=== PATIENT | male | born 1945 | race Caucasian/White ===

== ENCOUNTER 2023-07-12 11:34 | Inpatient (IN) | payer OTHER, MEDICARE, MEDICAID ==
[~2023-07-12] VITALS: Ht 180.3 cm; Wt 76.3 kg
[2023-07-12] MEDS ORDERED: APIX5TAB3 PO (12:58)
[2023-07-12] MEDS: HYDROcodone/acetaminophen 5mg/325mg tablet PO ONE (13:01)
[2023-07-12] MEDS: ondansetron 4mg rapidly disintigrating tab PO ONE (13:02)
[2023-07-12 13:03] LABS: BASOPHILS # (AUTO) 0.1 X10'3 (0-0.2); BASOPHILS % (AUTO) 0.7 % (0-1); EOSINOPHILS # (AUTO) 0.1 X10'3 (0-0.9); EOSINOPHILS % (AUTO) 1.4 % (0-6); HEMATOCRIT 39.2 % (42.0-52.0); HEMOGLOBIN 12.8 g/dl (14.0-17.9); LYMPHOCYTES # (AUTO) 1.7 X10'3 (1.1-4.8); LYMPHOCYTES % (AUTO) 23.5 % (21-51); MEAN CORPUSCULAR HEMOGLOBIN 29.5 PG (27.0-31.0); MEAN CORPUSCULAR HGB CONC 32.8 g/dL (33.0-36.5); MEAN CORPUSCULAR VOLUME 90.2 FL (78-98); MEAN PLATELET VOLUME 8.4 FL (7.4-10.4); MONOCYTES % (AUTO) 13.8 % (2-12); NEUTROPHILS # (AUTO) 4.4 X10'3 (1.8-7.7); NEUTROPHILS % (AUTO) 60.6 % (42-75); PLATELET COUNT 252 X10'3 (140-440); RED BLOOD COUNT 4.34 X10'6 (4.70-6.10); RED CELL DISTRIBUTION WIDTH 14.2 % (11.5-14.5); WHITE BLOOD COUNT 7.3 X10'3 (4.5-11.0)
[2023-07-12 13:14] LABS: APTT 28 SECONDS (22-32); PROTHROMBIN TIME 10.9 SECONDS (9.0-12.0)
[2023-07-12 13:24] LABS: ALANINE AMINOTRANSFERASE 19 U/L (12-78); ALBUMIN 3.1 G/DL (3.4-5.0); ALBUMIN/GLOBULIN RATIO 0.7 (1.1-1.5); ALKALINE PHOSPHATASE 119 IU/L (46-116); ANION GAP 5 (8-16); ASPARTATE AMINO TRANSFERASE 12 U/L (10-37); BILIRUBIN,TOTAL 0.3 MG/DL (0.1-1.0); BLOOD UREA NITROGEN 14 MG/DL (7-18); BUN/CREATININE RATIO 11.1 (10.0-20.0); CALCIUM 8.6 MG/DL (8.5-10.1); CHLORIDE 102 MMOL/L (99-107); CREATININE 1.26 MG/DL (0.60-1.10); GLUCOSE 90 MG/DL (70-104); POTASSIUM 4.3 MMOL/L (3.5-5.1); SODIUM 136 MMOL/L (135-145); TOTAL CARBON DIOXIDE 29.2 MMOL/L (24-32); TOTAL PROTEIN 7.8 G/DL (6.4-8.2); eCRCL 52 ML/MIN; eGFR 55 ML/MIN
[2023-07-12 13:35] LABS: MAGNESIUM 2.4 MG/DL (1.5-2.4); PRO BRAIN NATRIURETIC PEPTIDE 284 PG/ML (0-450)
[2023-07-12 14:57] LABS: BILIRUBIN,URINE NEGATIVE (Neg); CLARITY,URINE CLOUDY (Clear); COLOR,URINE YELLOW (Yellow); GLUCOSE, URINE NEGATIVE (Neg); KETONES,URINE NEGATIVE (Neg); LEUKOCYTE ESTERASE ,URINE NEGATIVE (Neg); NITRITES, URINE NEGATIVE (Neg); OCCULT BLOOD,URINE NEGATIVE (Neg); PROTEIN,URINE NEGATIVE (Neg); UROBILINOGEN,URINE 0.2 E.U/dL (0.2-1.0)
[2023-07-12 15:10] LABS: UA COLLECTION TYPE CLN CATCH MIDSTREAM
[2023-07-12 15:13] LABS: BACTERIA,URINE 4+ /HPF (Neg); RBC,URINE NONE SEEN /HPF (0-2); SQUAMOUS EPITHELIAL CELL,UR NONE SEEN /LPF (FEW); WBC,URINE 30-50 /HPF (0-4)
[2023-07-12 15:19] LABS: URINE AMPHETAMINE SCREEN NEGATIVE (Neg); URINE BARBITUATE SCREEN NEGATIVE (Neg); URINE BENZODIAZEPINES SCREEN NEGATIVE (Neg); URINE CANNABINOID SCREEN NEGATIVE (Neg); URINE COCAINE SCREEN NEGATIVE (Neg); URINE METHADONE SCREEN NEGATIVE (Neg); URINE OPIATE SCREEN NEGATIVE (Neg); URINE PHENCYCLIDINE SCREEN NEGATIVE (Neg)
[2023-07-12] MEDS ORDERED: acetaminophen 325mg tablet PO PRN (15:20)
[2023-07-12] MEDS ORDERED: magnesium hydroxide 30ml (MOM) UD suspension PO PRN (15:20)
[2023-07-12] MEDS ORDERED: mag hydrox/Alum hydrox/simeth 30ml oral suspension PO PRN (15:20)
[2023-07-12] MEDS ORDERED: potassium Cl 40MEQ/1/2NS 520ml 520 ML IV PRN (15:20)
[2023-07-12] MEDS ORDERED: ondansetron/PF 4mg/2ml inj IV PRN (15:20)
[2023-07-12] MEDS ORDERED: magnesium Cl slow-release 64mg tablet PO PRN (15:20)
[2023-07-12] MEDS ORDERED: morphine 2 MG/ML inj. syringe IV PRN ×2 (15:20)
[2023-07-12] MEDS ORDERED: magnesium 4gm in 100ml NS 100 ML IV PRN (15:20)
[2023-07-12] MEDS ORDERED: HYDROcodone/acetaminophen 10/325mg tab PO PRN (15:20)
[2023-07-12] MEDS ORDERED: magnesium 2GM in 50ml NS 50 ML IV PRN (15:20)
[2023-07-12] MEDS ORDERED: HYDROcodone/acetaminophen 5mg/325mg tablet PO PRN (15:20)
[2023-07-12] MEDS ORDERED: potassium Cl 20 mEq SR tablet PO PRN ×2 (15:20)
[2023-07-12] MEDS: pantoprazole 40 MG vial IV SCH (15:32)
[2023-07-12] MEDS: normal saline 1000ml 1,000 ML IV SCH (15:33)
[2023-07-12] MEDS: CefTRIAXone/D5W-Rocephin 1gm 50 ML IV SCH (16:14)
[2023-07-12] MEDS: K and/or MAG REPLACEMENT MC SCH (20:00)
[2023-07-12] MEDS: enoxaparin 40mg/0.4ml syringe SQ SCH (20:00)
[2023-07-12] MEDS: apixaban 5mg tablet PO SCH (20:23)
[2023-07-12] MEDS: docusate sod 100mg capsule PO SCH (20:24)
[2023-07-13 00:30] VITALS: BP 118/72; PULSE 58; RESP 18; TEMP 98; O2SAT 95
[2023-07-13 02:00] VITALS: BP 114/69; PULSE 54; RESP 18; TEMP 97.9; O2SAT 95
[2023-07-13 06:00] VITALS: BP 154/80; PULSE 53; RESP 16; TEMP 97.5; O2SAT 95
[2023-07-13 06:47] VITALS: PULSE 52
[2023-07-13 07:20] LABS: BASOPHILS % (AUTO) 0.8 % (0-1); EOSINOPHILS # (AUTO) 0.1 X10'3 (0-0.9); EOSINOPHILS % (AUTO) 2.2 % (0-6); HEMATOCRIT 36.9 % (42.0-52.0); HEMOGLOBIN 12.3 g/dl (14.0-17.9); LYMPHOCYTES # (AUTO) 1.4 X10'3 (1.1-4.8); LYMPHOCYTES % (AUTO) 23.1 % (21-51); MEAN CORPUSCULAR HEMOGLOBIN 29.8 PG (27.0-31.0); MEAN CORPUSCULAR HGB CONC 33.3 g/dL (33.0-36.5); MEAN CORPUSCULAR VOLUME 89.4 FL (78-98); MEAN PLATELET VOLUME 8.6 FL (7.4-10.4); MONOCYTES # (AUTO) 0.7 X10'3 (0-0.9); MONOCYTES % (AUTO) 12.5 % (2-12); NEUTROPHILS # (AUTO) 3.6 X10'3 (1.8-7.7); NEUTROPHILS % (AUTO) 61.4 % (42-75); PLATELET COUNT 229 X10'3 (140-440); RED BLOOD COUNT 4.13 X10'6 (4.70-6.10); RED CELL DISTRIBUTION WIDTH 14.5 % (11.5-14.5); WHITE BLOOD COUNT 5.9 X10'3 (4.5-11.0)
[2023-07-13 07:30] LABS: APTT 29 SECONDS (22-32)
[2023-07-13 07:32] LABS: ALANINE AMINOTRANSFERASE 15 U/L (12-78); ALBUMIN/GLOBULIN RATIO 0.7 (1.1-1.5); ALKALINE PHOSPHATASE 106 IU/L (46-116); ANION GAP 7 (8-16); ASPARTATE AMINO TRANSFERASE 13 U/L (10-37); BILIRUBIN,TOTAL 0.4 MG/DL (0.1-1.0); BLOOD UREA NITROGEN 15 MG/DL (7-18); BUN/CREATININE RATIO 11.5 (10.0-20.0); CALCIUM 8.8 MG/DL (8.5-10.1); CHLORIDE 101 MMOL/L (99-107); GLUCOSE 92 MG/DL (70-104); POTASSIUM 4.3 MMOL/L (3.5-5.1); SODIUM 136 MMOL/L (135-145); TOTAL CARBON DIOXIDE 28.3 MMOL/L (24-32); TOTAL PROTEIN 7.3 G/DL (6.4-8.2); eCRCL 51 ML/MIN; eGFR 54 ML/MIN
[2023-07-13 07:43] LABS: CHOL/HDL RATIO 5.2 (0.00-4.99); CHOLESTEROL 182 MG/DL (0-200); FREE T4 (FREE THYROXINE) 1.67 NG/DL (0.73-1.40); HDL CHOLESTEROL 35 MG/DL (35-60); LDL CHOLESTEROL 115 MG/DL (50-100); MAGNESIUM 2.3 MG/DL (1.5-2.4); PHOSPHORUS 3.5 MG/DL (2.3-4.5); TRIGLYCERIDES 94 MG/DL (20-135)
[2023-07-13] MEDS: metoprolol succinate 25mg (24-HOUR) SR. Tablet PO SCH (08:00)
[2023-07-13] MEDS: aspirin 81mg, enteric-coated 1 TAB TABLET.DR PO SCH (08:00)
[2023-07-13] MEDS ORDERED: pneumococcal 23-VAL P-sac vacc 25 mcg/0.5ml vial IMVAC ONE (10:00)
[2023-07-13] MEDS ORDERED: FLU VACC QS2023-24(6MOS UP)/PF 60 MCG/0.5 ML SYRINGE IM ONE (10:00)
[2023-07-13 10:49] LABS: HEMOGLOBIN A1C 5.9 % (4.5-6.2)
[2023-07-13 11:00] VITALS: BP 159/89; PULSE 64; RESP 18; TEMP 98.1; O2SAT 98
[2023-07-13] MEDS ORDERED: PANT-47 PO (12:42)
[2023-07-13] MEDS ORDERED: METO-395 PO (12:42)
[2023-07-13] MEDS ORDERED: LEVO-65 PO (12:44)
[2023-07-13] MEDS ORDERED: FURO-150 PO (20:31)
[2023-07-14] MEDS ORDERED: metoprolol succinate 25mg (24-HOUR) SR. Tablet PO SCH (08:00)
== END 2023-07-13 12:57 | disposition home or self-care (01) | DRG 391 ==
LOC: ER 11:35 → EDBD 11:35 → ED HOLD 15:22 → PCU 3S 07-13 00:50
PROVIDERS: ADMIT Internal Medicine; ATTEND Internal Medicine
DX: K29.70 Gastritis, unspecified, without bleeding (principal); N17.0 Acute kidney failure with tubular necrosis; N39.0 Urinary tract infection, site not specified; I50.30 Unspecified diastolic (congestive) heart failure; E86.0 Dehydration; I25.10 Atherosclerotic heart disease of native coronary artery without angina pectoris; I48.91 Unspecified atrial fibrillation; I11.0 Hypertensive heart disease with heart failure; E05.80 Other thyrotoxicosis without thyrotoxic crisis or storm; F03.90 Unspecified dementia, unspecified severity, without behavioral disturbance, psychotic disturbance, mood disturbance, and anxiety; E78.5 Hyperlipidemia, unspecified; Z79.01 Long term (current) use of anticoagulants; Z79.899 Other long term (current) drug therapy
CPT/HCPCS: 36415; 71045; 80053; 80061; 80305; 81001; 83036; 83735; 83880; 84100; 84132; 84439; 84443; 84484; 85025; 85610; 85730; 87077; 87081; 87088; 87186; 93005; 93306; 99285; C9113; G0378; J0696; J7030

== ENCOUNTER 2023-10-15 16:27 | Inpatient (IN) | payer OTHER, MEDICARE, MEDICAID ==
[~2023-10-15] VITALS: Ht 177.8 cm; Wt 81.8 kg
[2023-10-15] VITALS (12 sets, daily range): BP systolic 139–217; BP diastolic 77–124; PULSE 67–87; RESP 6–22; O2SAT 93–100
[~2023-10-15 16:27] MED LIST: APIX5TAB3 PO; FURO-150 PO; LISI5TAB22 PO; METO-395 PO; PANT-47 PO
[2023-10-15 18:27] LABS: BASOPHILS % (AUTO) 0.3 % (0-1); EOSINOPHILS % (AUTO) 0.2 % (0-6); HEMATOCRIT 45.5 % (42.0-52.0); HEMOGLOBIN 15.6 g/dl (14.0-17.9); LYMPHOCYTES % (AUTO) 7.8 % (21-51); MEAN CORPUSCULAR HEMOGLOBIN 30.8 PG (27.0-31.0); MEAN CORPUSCULAR HGB CONC 34.4 g/dL (33.0-36.5); MEAN CORPUSCULAR VOLUME 89.5 FL (78-98); MONOCYTES # (AUTO) 0.8 X10'3 (0-0.9); MONOCYTES % (AUTO) 5.9 % (2-12); NEUTROPHILS % (AUTO) 85.8 % (42-75); PLATELET COUNT 178 X10'3 (140-440); RED BLOOD COUNT 5.08 X10'6 (4.70-6.10); RED CELL DISTRIBUTION WIDTH 14.8 % (11.5-14.5); WHITE BLOOD COUNT 12.8 X10'3 (4.5-11.0)
[2023-10-15 18:32] LABS: APTT 22 SECONDS (22-32); PROTHROMBIN TIME 10.9 SECONDS (9.0-12.0)
[2023-10-15 18:38] LABS: ALANINE AMINOTRANSFERASE 19 U/L (12-78); ALBUMIN 4.3 G/DL (3.4-5.0); ALBUMIN/GLOBULIN RATIO 0.9 (1.1-1.5); ALKALINE PHOSPHATASE 103 IU/L (46-116); ANION GAP 12 (8-16); ASPARTATE AMINO TRANSFERASE 17 U/L (10-37); BILIRUBIN,TOTAL 0.7 MG/DL (0.1-1.0); BLOOD UREA NITROGEN 22 MG/DL (7-18); BUN/CREATININE RATIO 12.6 (10.0-20.0); CHLORIDE 96 MMOL/L (99-107); CREATININE 1.74 MG/DL (0.60-1.10); GLUCOSE 124 MG/DL (70-104); LIPASE 16 U/L (16-77); SODIUM 135 MMOL/L (135-145); TOTAL CARBON DIOXIDE 27.1 MMOL/L (24-32); TOTAL PROTEIN 8.9 G/DL (6.4-8.2); eCRCL 37 ML/MIN; eGFR 38 ML/MIN
[2023-10-15] MEDS ORDERED: ondansetron/PF 4mg/2ml inj IV PRN (19:00)
[2023-10-15] MEDS ORDERED: labetalol 20mg/4ml (5mg/ml) syringe IV PRN (19:00)
[2023-10-15] MEDS ORDERED: morphine 2 MG/ML inj. syringe IV PRN (19:00)
[2023-10-15] MEDS ORDERED: meperidine/PF 25mg/ml syringe IV PRN ×2 (19:00)
[2023-10-15] MEDS ORDERED: proCHLORperazine 10 MG/2 ml inj IV PRN (19:00)
[2023-10-15] MEDS ORDERED: morphine 4 MG/ML inj SYRINge IV PRN (19:00)
[2023-10-15] MEDS: ringers solution, lacted 1,000 ML IV SCH (19:00)
[2023-10-15] MEDS ORDERED: BUPIVACAINE liposomal/PF 13.3 MG/ML vial IM ONE (19:27)
[2023-10-15] MEDS ORDERED: BUPIVAcaine/PF 2.5mg/ml (0.25%) 10ml vial ONE (19:27)
[2023-10-15] MEDS ORDERED: fentaNYL /PF 50mcg/ml 5ml ampule ONE (19:43)
[2023-10-15] MEDS ORDERED: midazolam 1 mg/ML 2ml injection ONE (19:43)
[2023-10-15] MEDS ORDERED: sevoflurane 250ml liquid IH ONE (19:47)
[2023-10-15] MEDS ORDERED: propofol inj 20 ML IV ONE (20:49)
[2023-10-15] MEDS ORDERED: rocuronium 10mg/ml inj IV ONE (20:49)
[2023-10-15] MEDS ORDERED: ondansetron/PF 4mg/2ml inj ONE (20:49)
[2023-10-15] MEDS ORDERED: ceFOXitin 1000 MG inj ONE ×2 (20:49)
[2023-10-15] MEDS ORDERED: LIDOcaine 2% (20mg/ml) 5ml vial ONE (20:49)
[2023-10-15] MEDS ORDERED: labetalol 20mg/4ml (5mg/ml) syringe IV ONE (21:22)
[2023-10-15] MEDS ORDERED: neostigmine methylsulfate 1 MG/ML 10ml vial ONE (21:22)
[2023-10-15] MEDS: meperidine/PF 25mg/ml syringe IV PRN (21:53)
[2023-10-15] MEDS: enalaprilat dihydrate 2.5mg/2ml vial IV PRN (21:56)
[2023-10-16] VITALS (11 sets, daily range): BP systolic 113–131; BP diastolic 59–65; PULSE 62–72; RESP 14–18; TEMP 97.5–99.6; O2SAT 93–99
[2023-10-16] MEDS ORDERED: ondansetron/PF 4mg/2ml inj IV PRN ×2 (02:20→03:20)
[2023-10-16] MEDS: HYDROmorphone 1 mg/ml syringe IV PRN (02:46)
[2023-10-16] MEDS ORDERED: acetaminophen 325mg tablet PO PRN (03:20)
[2023-10-16] MEDS ORDERED: magnesium 2GM in 50ml NS 50 ML IV PRN (03:20)
[2023-10-16] MEDS ORDERED: mag hydrox/Alum hydrox/simeth 30ml oral suspension PO PRN (03:20)
[2023-10-16] MEDS ORDERED: magnesium hydroxide 30ml (MOM) UD suspension PO PRN (03:20)
[2023-10-16] MEDS ORDERED: potassium Cl 40MEQ/1/2NS 520ml 520 ML IV PRN (03:20)
[2023-10-16] MEDS ORDERED: magnesium 4gm in 100ml NS 100 ML IV PRN (03:20)
[2023-10-16] MEDS ORDERED: magnesium Cl slow-release 64mg tablet PO PRN (03:20)
[2023-10-16] MEDS ORDERED: potassium Cl 20 mEq SR tablet PO PRN ×2 (03:20)
[2023-10-16] MEDS: normal saline 1000ml 1,000 ML IV SCH (04:32)
[2023-10-16] MEDS: K and/or MAG REPLACEMENT MC SCH (08:00)
[2023-10-16] MEDS: pantoprazole 40mg Tablet.DR PO SCH (08:52)
[2023-10-16] MEDS: furosemide 20MG tablet PO SCH (08:52)
[2023-10-16] MEDS: docusate sod 100mg capsule PO SCH (08:52)
[2023-10-16] MEDS: apixaban 5mg tablet PO SCH (08:52)
[2023-10-16] MEDS: lisinopril 5mg tablet PO SCH (08:53)
[2023-10-16] MEDS: metoprolol succinate 25mg (24-HOUR) SR. Tablet PO SCH (08:53)
[2023-10-16] MEDS: nitroGLYCERIN 0.4mg SUBLingual tab SL ONE (23:19)
[2023-10-16] MEDS: nitroGLYCERIN 0.4mg SUBLingual tab SL PRN (23:24)
[2023-10-17] VITALS (10 sets, daily range): BP systolic 80–161; BP diastolic 52–77; PULSE 59–85; RESP 14–18; TEMP 97.5–98.4; O2SAT 92–95
[2023-10-17 00:03] LABS: PRO BRAIN NATRIURETIC PEPTIDE 784 PG/ML (0-450)
[2023-10-17 07:34] LABS: BASOPHILS % (AUTO) 0.3 % (0-1); EOSINOPHILS % (AUTO) 0 % (0-6); HEMATOCRIT 34.8 % (42.0-52.0); HEMOGLOBIN 11.6 g/dl (14.0-17.9); LYMPHOCYTES # (AUTO) 1.3 X10'3 (1.1-4.8); LYMPHOCYTES % (AUTO) 11.6 % (21-51); MEAN CORPUSCULAR HEMOGLOBIN 30.5 PG (27.0-31.0); MEAN CORPUSCULAR HGB CONC 33.2 g/dL (33.0-36.5); MEAN CORPUSCULAR VOLUME 91.7 FL (78-98); MEAN PLATELET VOLUME 8.8 FL (7.4-10.4); MONOCYTES # (AUTO) 1.3 X10'3 (0-0.9); MONOCYTES % (AUTO) 11.3 % (2-12); NEUTROPHILS # (AUTO) 8.7 X10'3 (1.8-7.7); NEUTROPHILS % (AUTO) 76.8 % (42-75); PLATELET COUNT 139 X10'3 (140-440); RED BLOOD COUNT 3.79 X10'6 (4.70-6.10); WHITE BLOOD COUNT 11.3 X10'3 (4.5-11.0)
[2023-10-17 08:15] LABS: ALANINE AMINOTRANSFERASE 12 U/L (12-78); ALBUMIN 2.8 G/DL (3.4-5.0); ALBUMIN/GLOBULIN RATIO 0.8 (1.1-1.5); ALKALINE PHOSPHATASE 49 IU/L (46-116); ANION GAP 6 (8-16); ASPARTATE AMINO TRANSFERASE 23 U/L (10-37); BILIRUBIN,TOTAL 0.6 MG/DL (0.1-1.0); BLOOD UREA NITROGEN 19 MG/DL (7-18); CALCIUM 8.1 MG/DL (8.5-10.1); CHLORIDE 105 MMOL/L (99-107); CREATININE 1.19 MG/DL (0.60-1.10); GLUCOSE 102 MG/DL (70-104); MAGNESIUM 2.1 MG/DL (1.5-2.4); PHOSPHORUS 2.6 MG/DL (2.3-4.5); POTASSIUM 4.3 MMOL/L (3.5-5.1); SODIUM 138 MMOL/L (135-145); TOTAL CARBON DIOXIDE 27.3 MMOL/L (24-32); TOTAL PROTEIN 6.1 G/DL (6.4-8.2); eCRCL 54 ML/MIN; eGFR 59 ML/MIN
[2023-10-17] MEDS ORDERED: regadenoson 0.4mg/5ml syringe IV PRN (12:45)
[2023-10-17] MEDS ORDERED: metoprolol tartrate 1mg/ml inj IV PRN (12:45)
[2023-10-17] MEDS ORDERED: aminophylline 250mg/10ml inj. IV PRN (12:45)
[2023-10-18 02:58] VITALS: BP 143/90; PULSE 95; RESP 16; TEMP 98.3; O2SAT 95
[2023-10-18] MEDS: nitroGLYCERIN 0.4mg SUBLingual tab SL PRN (03:01)
[2023-10-18 03:04] VITALS: BP 117/76; PULSE 91; RESP 14; O2SAT 91
[2023-10-18 03:55] VITALS: BP 93/62; PULSE 88; RESP 12; O2SAT 94
[2023-10-18 06:00] VITALS: BP 145/89; RESP 18; TEMP 98.3; O2SAT 96
[2023-10-18 08:00] LABS: BASOPHILS % (AUTO) 0.4 % (0-1); EOSINOPHILS # (AUTO) 0.1 X10'3 (0-0.9); EOSINOPHILS % (AUTO) 1.4 % (0-6); HEMATOCRIT 35.3 % (42.0-52.0); LYMPHOCYTES # (AUTO) 1.7 X10'3 (1.1-4.8); LYMPHOCYTES % (AUTO) 17.2 % (21-51); MEAN CORPUSCULAR HEMOGLOBIN 31.2 PG (27.0-31.0); MEAN CORPUSCULAR HGB CONC 34.1 g/dL (33.0-36.5); MEAN CORPUSCULAR VOLUME 91.5 FL (78-98); MEAN PLATELET VOLUME 8.9 FL (7.4-10.4); MONOCYTES # (AUTO) 1.3 X10'3 (0-0.9); MONOCYTES % (AUTO) 12.7 % (2-12); NEUTROPHILS # (AUTO) 6.8 X10'3 (1.8-7.7); NEUTROPHILS % (AUTO) 68.3 % (42-75); PLATELET COUNT 155 X10'3 (140-440); RED BLOOD COUNT 3.85 X10'6 (4.70-6.10); WHITE BLOOD COUNT 9.9 X10'3 (4.5-11.0)
[2023-10-18 08:12] LABS: ALANINE AMINOTRANSFERASE 14 U/L (12-78); ALBUMIN 2.9 G/DL (3.4-5.0); ALBUMIN/GLOBULIN RATIO 0.8 (1.1-1.5); ALKALINE PHOSPHATASE 60 IU/L (46-116); ANION GAP 1 (8-16); ASPARTATE AMINO TRANSFERASE 28 U/L (10-37); BILIRUBIN,TOTAL 0.7 MG/DL (0.1-1.0); BLOOD UREA NITROGEN 18 MG/DL (7-18); BUN/CREATININE RATIO 14.1 (10.0-20.0); CALCIUM 8.4 MG/DL (8.5-10.1); CHLORIDE 104 MMOL/L (99-107); CREATININE 1.28 MG/DL (0.60-1.10); GLUCOSE 97 MG/DL (70-104); PHOSPHORUS 2.3 MG/DL (2.3-4.5); POTASSIUM 3.9 MMOL/L (3.5-5.1); SODIUM 135 MMOL/L (135-145); TOTAL CARBON DIOXIDE 29.6 MMOL/L (24-32); TOTAL PROTEIN 6.7 G/DL (6.4-8.2); eCRCL 50 ML/MIN; eGFR 54 ML/MIN
[2023-10-18 18:40] VITALS: BP 145/89; PULSE 72; RESP 18; TEMP 98.3; O2SAT 96
[2023-10-18 22:00] VITALS: BP 138/71; PULSE 56; RESP 16; TEMP 97.7; O2SAT 93
[2023-10-19 06:00] VITALS: BP 161/81; PULSE 54; RESP 16; TEMP 98.7; O2SAT 95
[2023-10-19] MEDS: atorvastatin 20mg tablet PO SCH (07:47)
[2023-10-19 07:49] VITALS: RESP 16
[2023-10-19] MEDS: isosorbide mononitrate 30mg tab.SR.24H PO SCH (07:58)
[2023-10-19 08:02] VITALS: BP 180/81; PULSE 55
[2023-10-19 08:32] LABS: BASOPHILS # (AUTO) 0.1 X10'3 (0-0.2); BASOPHILS % (AUTO) 0.7 % (0-1); EOSINOPHILS # (AUTO) 0.3 X10'3 (0-0.9); EOSINOPHILS % (AUTO) 4.2 % (0-6); HEMATOCRIT 35.6 % (42.0-52.0); HEMOGLOBIN 12.2 g/dl (14.0-17.9); LYMPHOCYTES # (AUTO) 1.4 X10'3 (1.1-4.8); LYMPHOCYTES % (AUTO) 17.7 % (21-51); MEAN CORPUSCULAR HEMOGLOBIN 31.1 PG (27.0-31.0); MEAN CORPUSCULAR HGB CONC 34.2 g/dL (33.0-36.5); MEAN CORPUSCULAR VOLUME 90.9 FL (78-98); MEAN PLATELET VOLUME 8.8 FL (7.4-10.4); MONOCYTES # (AUTO) 0.8 X10'3 (0-0.9); MONOCYTES % (AUTO) 10.4 % (2-12); NEUTROPHILS # (AUTO) 5.3 X10'3 (1.8-7.7); PLATELET COUNT 160 X10'3 (140-440); RED BLOOD COUNT 3.91 X10'6 (4.70-6.10); RED CELL DISTRIBUTION WIDTH 14.8 % (11.5-14.5); WHITE BLOOD COUNT 7.9 X10'3 (4.5-11.0)
[2023-10-19 09:07] LABS: ALANINE AMINOTRANSFERASE 13 U/L (12-78); ALBUMIN 2.8 G/DL (3.4-5.0); ALBUMIN/GLOBULIN RATIO 0.7 (1.1-1.5); ALKALINE PHOSPHATASE 61 IU/L (46-116); ANION GAP 5 (8-16); ASPARTATE AMINO TRANSFERASE 21 U/L (10-37); BILIRUBIN,TOTAL 0.7 MG/DL (0.1-1.0); BLOOD UREA NITROGEN 19 MG/DL (7-18); BUN/CREATININE RATIO 17.3 (10.0-20.0); CALCIUM 8.7 MG/DL (8.5-10.1); CHLORIDE 103 MMOL/L (99-107); GLUCOSE 93 MG/DL (70-104); PHOSPHORUS 3.2 MG/DL (2.3-4.5); POTASSIUM 3.7 MMOL/L (3.5-5.1); SODIUM 135 MMOL/L (135-145); TOTAL CARBON DIOXIDE 26.7 MMOL/L (24-32); TOTAL PROTEIN 6.6 G/DL (6.4-8.2); eCRCL 58 ML/MIN; eGFR 65 ML/MIN
[2023-10-19 10:00] VITALS: BP 93/55; PULSE 70; RESP 18; TEMP 97.7; O2SAT 97
[2023-10-19] MEDS: HYDROcodone/acetaminophen 5mg/325mg tablet PO PRN (14:16)
[2023-10-19 18:00] VITALS: BP 119/70; PULSE 68; RESP 14; TEMP 97.6; O2SAT 93
[2023-10-19 22:00] VITALS: BP 122/72; PULSE 63; RESP 17; TEMP 98.1; O2SAT 92
[2023-10-20 06:00] VITALS: BP 124/68; PULSE 59; RESP 16; TEMP 98.3; O2SAT 97
[2023-10-20 08:00] VITALS: RESP 16; O2SAT 97
[2023-10-20 08:09] LABS: BASOPHILS % (AUTO) 0.7 % (0-1); EOSINOPHILS # (AUTO) 0.3 X10'3 (0-0.9); EOSINOPHILS % (AUTO) 4.1 % (0-6); HEMATOCRIT 36.1 % (42.0-52.0); HEMOGLOBIN 12.2 g/dl (14.0-17.9); LYMPHOCYTES # (AUTO) 1.9 X10'3 (1.1-4.8); LYMPHOCYTES % (AUTO) 26.2 % (21-51); MEAN CORPUSCULAR HEMOGLOBIN 30.7 PG (27.0-31.0); MEAN CORPUSCULAR HGB CONC 33.7 g/dL (33.0-36.5); MEAN PLATELET VOLUME 8.9 FL (7.4-10.4); MONOCYTES # (AUTO) 0.9 X10'3 (0-0.9); MONOCYTES % (AUTO) 12.1 % (2-12); NEUTROPHILS # (AUTO) 4.1 X10'3 (1.8-7.7); NEUTROPHILS % (AUTO) 56.9 % (42-75); PLATELET COUNT 187 X10'3 (140-440); RED BLOOD COUNT 3.97 X10'6 (4.70-6.10); RED CELL DISTRIBUTION WIDTH 14.5 % (11.5-14.5); WHITE BLOOD COUNT 7.2 X10'3 (4.5-11.0)
[2023-10-20 08:46] LABS: ALANINE AMINOTRANSFERASE 14 U/L (12-78); ALBUMIN 2.8 G/DL (3.4-5.0); ALBUMIN/GLOBULIN RATIO 0.7 (1.1-1.5); ALKALINE PHOSPHATASE 70 IU/L (46-116); ANION GAP 4 (8-16); ASPARTATE AMINO TRANSFERASE 15 U/L (10-37); BILIRUBIN,TOTAL 0.4 MG/DL (0.1-1.0); BLOOD UREA NITROGEN 19 MG/DL (7-18); BUN/CREATININE RATIO 15.1 (10.0-20.0); CALCIUM 8.9 MG/DL (8.5-10.1); CHLORIDE 102 MMOL/L (99-107); CREATININE 1.26 MG/DL (0.60-1.10); GLUCOSE 97 MG/DL (70-104); PHOSPHORUS 4.3 MG/DL (2.3-4.5); POTASSIUM 3.9 MMOL/L (3.5-5.1); SODIUM 136 MMOL/L (135-145); TOTAL CARBON DIOXIDE 30.1 MMOL/L (24-32); TOTAL PROTEIN 6.7 G/DL (6.4-8.2); eCRCL 51 ML/MIN; eGFR 55 ML/MIN
[2023-10-20 10:00] VITALS: BP 141/78; PULSE 64; RESP 18; TEMP 98.1; O2SAT 96
== END 2023-10-20 14:40 | DRG 335 ==
LOC: ER 16:27 → ORTHO 4S 22:20
PROVIDERS: ADMIT Surgery; ATTEND Internal Medicine
PROC: 0D9800Z Drainage of Small Intestine with Drainage Device, Open Approach (ICD-10-PCS; 2023-10-15)
PROC: 3E0T3BZ Introduction of Anesthetic Agent into Peripheral Nerves and Plexi, Percutaneous Approach (ICD-10-PCS; 2023-10-15)
PROC: 0DN80ZZ Release Small Intestine, Open Approach (ICD-10-PCS; principal; 2023-10-15 19:47)
PROC: 4A02XM4 Measurement of Cardiac Total Activity, External Approach (ICD-10-PCS; 2023-10-18)
PROC: 3E033HZ Introduction of Radioactive Substance into Peripheral Vein, Percutaneous Approach (ICD-10-PCS; 2023-10-18)
DX: K56.50 Intestinal adhesions [bands], unspecified as to partial versus complete obstruction (principal); I21.4 Non-ST elevation (NSTEMI) myocardial infarction; N17.9 Acute kidney failure, unspecified; I25.110 Atherosclerotic heart disease of native coronary artery with unstable angina pectoris; I48.91 Unspecified atrial fibrillation; E86.0 Dehydration; F03.90 Unspecified dementia, unspecified severity, without behavioral disturbance, psychotic disturbance, mood disturbance, and anxiety; Z66 Do not resuscitate; I10 Essential (primary) hypertension; Z79.01 Long term (current) use of anticoagulants; Z79.899 Other long term (current) drug therapy; Z86.718 Personal history of other venous thrombosis and embolism
CPT/HCPCS: 36415; 71045; 78451; 80053; 83690; 83735; 83880; 84100; 84132; 84484; 85025; 85610; 85730; 86885; 86900; 86901; 87081; 93005; 93306; 97116; 97161; 97530; 99285; A4618; A7000; A9500; C1758; C9290; G0378; J0694; J1100; J1170; J2175; J2250; J2405; J2704; J2710; J3010; J3490; J7030; J7120

== ENCOUNTER 2024-03-20 00:29 | Inpatient (IN) | payer OTHER, MEDICAID ==
[~2024-03-20] VITALS: Ht 175.3 cm; Wt 81.8 kg
[2024-03-20] VITALS (8 sets, daily range): BP systolic 118–170; BP diastolic 58–86; PULSE 50–68; RESP 14–18; TEMP 97.3–98.8; O2SAT 95–98
[2024-03-20 01:34] LABS: BASOPHILS # (AUTO) 0.1 X10'3 (0-0.2); BASOPHILS % (AUTO) 0.6 % (0-1); EOSINOPHILS # (AUTO) 0.1 X10'3 (0-0.9); EOSINOPHILS % (AUTO) 1.1 % (0-6); HEMATOCRIT 39.3 % (42.0-52.0); LYMPHOCYTES # (AUTO) 1.4 X10'3 (1.1-4.8); LYMPHOCYTES % (AUTO) 15.7 % (21-51); MEAN CORPUSCULAR HEMOGLOBIN 30.3 PG (27.0-31.0); MEAN CORPUSCULAR VOLUME 91.7 FL (78-98); MEAN PLATELET VOLUME 8.8 FL (7.4-10.4); MONOCYTES # (AUTO) 0.7 X10'3 (0-0.9); MONOCYTES % (AUTO) 8.3 % (2-12); NEUTROPHILS # (AUTO) 6.5 X10'3 (1.8-7.7); NEUTROPHILS % (AUTO) 74.3 % (42-75); PLATELET COUNT 185 X10'3 (140-440); RED BLOOD COUNT 4.29 X10'6 (4.70-6.10); RED CELL DISTRIBUTION WIDTH 14.5 % (11.5-14.5); WHITE BLOOD COUNT 8.7 X10'3 (4.5-11.0)
[2024-03-20 01:46] LABS: ALANINE AMINOTRANSFERASE 17 U/L (12-78); ALBUMIN 3.4 G/DL (3.4-5.0); ALBUMIN/GLOBULIN RATIO 0.9 (1.1-1.5); ALKALINE PHOSPHATASE 110 IU/L (46-116); ANION GAP 9 (8-16); ASPARTATE AMINO TRANSFERASE 18 U/L (10-37); BILIRUBIN,TOTAL 0.3 MG/DL (0.1-1.0); BLOOD UREA NITROGEN 29 MG/DL (7-18); BUN/CREATININE RATIO 17.7 (10.0-20.0); CHLORIDE 103 MMOL/L (99-107); CREATININE 1.64 MG/DL (0.60-1.10); GLUCOSE 96 MG/DL (70-104); POTASSIUM 3.9 MMOL/L (3.5-5.1); SODIUM 138 MMOL/L (135-145); TOTAL CARBON DIOXIDE 26.5 MMOL/L (24-32); TOTAL PROTEIN 7.1 G/DL (6.4-8.2); eCRCL 38 ML/MIN; eGFR 41 ML/MIN
[2024-03-20 01:55] LABS: PRO BRAIN NATRIURETIC PEPTIDE 193 PG/ML (0-450)
[2024-03-20] MEDS ORDERED: mag hydrox/Alum hydrox/simeth 30ml oral suspension PO PRN (03:05)
[2024-03-20] MEDS ORDERED: magnesium sulf-water 2g/50mL 50 ML IV PRN (03:05)
[2024-03-20] MEDS ORDERED: ondansetron/PF 4mg/2ml inj IV PRN (03:05)
[2024-03-20] MEDS ORDERED: potassium Cl 20 mEq SR tablet PO PRN ×2 (03:05)
[2024-03-20] MEDS ORDERED: magnesium Cl slow-release 64mg tablet PO PRN (03:05)
[2024-03-20] MEDS ORDERED: magnesium sulf-water 4G/100mL 100 ML IV PRN (03:05)
[2024-03-20] MEDS ORDERED: morphine 2 MG/ML inj. syringe IV PRN ×2 (03:05)
[2024-03-20] MEDS ORDERED: acetaminophen 325mg tablet PO PRN (03:05)
[2024-03-20] MEDS ORDERED: magnesium hydroxide 30ml (MOM) UD suspension PO PRN (03:05)
[2024-03-20] MEDS ORDERED: potassium Cl 40MEQ/1/2NS 520ml 520 ML IV PRN (03:05)
[2024-03-20] MEDS: heparin 25,000 UNIT/250ml bag 250 ML IV PRN (03:07)
[2024-03-20] MEDS: heparin 10,000 units/1 ML INJ IV ONE (03:07)
[2024-03-20 03:23] LABS: APTT 22 SECONDS (22-32); PROTHROMBIN TIME 10.4 SECONDS (9.0-12.0)
[2024-03-20] MEDS: aspirin 81mg, enteric-coated 1 TAB TABLET.DR PO SCH (03:40)
[2024-03-20] MEDS: metoprolol tartrate 25mg tablet PO SCH (03:50)
[2024-03-20] MEDS ORDERED: hydrALAZINE 20mg/ml inj. IV PRN (03:50)
[2024-03-20] MEDS: atorvastatin 20mg tablet PO SCH (03:56)
[2024-03-20] MEDS: normal saline 1000ml 1,000 ML IV SCH (03:56)
[2024-03-20] MEDS: MESSAGE TO NURSING IV ONE ×2 (04:06→20:35)
[2024-03-20] MEDS: K and/or MAG REPLACEMENT MC SCH (07:07)
[2024-03-20] MEDS: docusate sod 100mg capsule PO SCH (07:08)
[2024-03-20 07:51] LABS: MAGNESIUM 2.1 MG/DL (1.5-2.4); POTASSIUM 4.2 MMOL/L (3.5-5.1)
[2024-03-20] MEDS: heparin 10,000 units/1 ML INJ IV PRN (17:20)
[2024-03-20] MEDS ORDERED: ATOR20TA66 PO (22:34)
[2024-03-20] MEDS ORDERED: RIVA20TA PO (22:34)
[2024-03-20] MEDS ORDERED: NITR0.4T48 (22:34)
[2024-03-21] VITALS (8 sets, daily range): BP systolic 109–151; BP diastolic 57–74; PULSE 50–82; RESP 11–16; TEMP 97.4–98.6; O2SAT 94–97
[2024-03-21] MEDS: MESSAGE TO NURSING IV ONE ×4 (00:30→21:44)
[2024-03-21 05:21] LABS: BASOPHILS # (AUTO) 0.1 X10'3 (0-0.2); EOSINOPHILS # (AUTO) 0.3 X10'3 (0-0.9); HEMATOCRIT 34.7 % (42.0-52.0); HEMOGLOBIN 11.7 g/dl (14.0-17.9); LYMPHOCYTES # (AUTO) 2.7 X10'3 (1.1-4.8); LYMPHOCYTES % (AUTO) 42.1 % (21-51); MEAN CORPUSCULAR HEMOGLOBIN 30.9 PG (27.0-31.0); MEAN CORPUSCULAR HGB CONC 33.7 g/dL (33.0-36.5); MEAN CORPUSCULAR VOLUME 91.5 FL (78-98); MONOCYTES # (AUTO) 0.7 X10'3 (0-0.9); MONOCYTES % (AUTO) 10.9 % (2-12); NEUTROPHILS # (AUTO) 2.7 X10'3 (1.8-7.7); PLATELET COUNT 148 X10'3 (140-440); RED BLOOD COUNT 3.79 X10'6 (4.70-6.10); RED CELL DISTRIBUTION WIDTH 14.5 % (11.5-14.5); WHITE BLOOD COUNT 6.5 X10'3 (4.5-11.0)
[2024-03-21 05:33] LABS: ALANINE AMINOTRANSFERASE 15 U/L (12-78); ALBUMIN 2.9 G/DL (3.4-5.0); ALBUMIN/GLOBULIN RATIO 0.9 (1.1-1.5); ALKALINE PHOSPHATASE 75 IU/L (46-116); ANION GAP 5 (8-16); ASPARTATE AMINO TRANSFERASE 24 U/L (10-37); BILIRUBIN,TOTAL 0.4 MG/DL (0.1-1.0); BLOOD UREA NITROGEN 23 MG/DL (7-18); BUN/CREATININE RATIO 17.4 (10.0-20.0); CALCIUM 8.6 MG/DL (8.5-10.1); CHLORIDE 107 MMOL/L (99-107); CREATININE 1.32 MG/DL (0.60-1.10); GLUCOSE 88 MG/DL (70-104); MAGNESIUM 1.9 MG/DL (1.5-2.4); SODIUM 139 MMOL/L (135-145); TOTAL CARBON DIOXIDE 27.3 MMOL/L (24-32); eCRCL 47 ML/MIN; eGFR 53 ML/MIN
[2024-03-21] MEDS: losartan 25mg tablet PO SCH (08:16)
[2024-03-21] MEDS ORDERED: aminophylline 250mg/10ml inj. IV PRN (17:40)
[2024-03-21] MEDS ORDERED: metoprolol tartrate 1mg/ml inj IV PRN (17:40)
[2024-03-21] MEDS ORDERED: nitroGLYCERIN 0.4mg SUBLingual tab SL PRN (17:40)
[2024-03-21] MEDS: nitroGLYCERIN 0.4mg SUBLingual tab SL PRN (19:34)
[2024-03-22] VITALS (17 sets, daily range): BP systolic 113–185; BP diastolic 61–87; PULSE 43–89; RESP 10–18; TEMP 97.6–98.5; O2SAT 93–98
[2024-03-22 04:16] LABS: BASOPHILS % (AUTO) 0.6 % (0-1); EOSINOPHILS # (AUTO) 0.3 X10'3 (0-0.9); HEMATOCRIT 37.7 % (42.0-52.0); HEMOGLOBIN 12.7 g/dl (14.0-17.9); LYMPHOCYTES # (AUTO) 2.9 X10'3 (1.1-4.8); LYMPHOCYTES % (AUTO) 35.4 % (21-51); MEAN CORPUSCULAR HEMOGLOBIN 30.9 PG (27.0-31.0); MEAN CORPUSCULAR HGB CONC 33.7 g/dL (33.0-36.5); MEAN CORPUSCULAR VOLUME 91.8 FL (78-98); MEAN PLATELET VOLUME 9.4 FL (7.4-10.4); MONOCYTES # (AUTO) 0.9 X10'3 (0-0.9); MONOCYTES % (AUTO) 11.4 % (2-12); NEUTROPHILS # (AUTO) 3.9 X10'3 (1.8-7.7); NEUTROPHILS % (AUTO) 48.6 % (42-75); PLATELET COUNT 163 X10'3 (140-440); RED BLOOD COUNT 4.11 X10'6 (4.70-6.10); RED CELL DISTRIBUTION WIDTH 14.3 % (11.5-14.5); WHITE BLOOD COUNT 8.1 X10'3 (4.5-11.0)
[2024-03-22 04:30] LABS: ALANINE AMINOTRANSFERASE 17 U/L (12-78); ALBUMIN 3.3 G/DL (3.4-5.0); ALBUMIN/GLOBULIN RATIO 0.9 (1.1-1.5); ALKALINE PHOSPHATASE 89 IU/L (46-116); ANION GAP 6 (8-16); ASPARTATE AMINO TRANSFERASE 37 U/L (10-37); BILIRUBIN,TOTAL 0.5 MG/DL (0.1-1.0); BLOOD UREA NITROGEN 21 MG/DL (7-18); BUN/CREATININE RATIO 14.3 (10.0-20.0); CALCIUM 9.1 MG/DL (8.5-10.1); CHLORIDE 106 MMOL/L (99-107); CREATININE 1.47 MG/DL (0.60-1.10); GLUCOSE 93 MG/DL (70-104); MAGNESIUM 1.8 MG/DL (1.5-2.4); POTASSIUM 4.1 MMOL/L (3.5-5.1); SODIUM 140 MMOL/L (135-145); TOTAL CARBON DIOXIDE 28.4 MMOL/L (24-32); TOTAL PROTEIN 6.8 G/DL (6.4-8.2); eCRCL 42 ML/MIN; eGFR 46 ML/MIN
[2024-03-22] MEDS: MESSAGE TO NURSING IV ONE ×2 (04:51→12:36)
[2024-03-22] MEDS ORDERED: ASPI-1071 PO (10:48)
[2024-03-22] MEDS ORDERED: CLOP-32 PO (10:48)
[2024-03-22] MEDS ORDERED: LOSA25TA41 PO (10:48)
[2024-03-22] MEDS ORDERED: ROSU40TA PO (10:51)
[2024-03-22] MEDS ORDERED: ISOS20TA15 PO (11:10)
[2024-03-22] MEDS ORDERED: ISOS10TA8 PO (11:10)
[2024-03-22] MEDS: regadenoson 0.4mg/5ml syringe IV PRN (12:05)
[2024-03-22] MEDS ORDERED: MESSAGE TO NURSING IV ONE (12:35)
[2024-03-22] MEDS ORDERED: ISOS30TA84 PO (16:35)
[2024-03-23] MEDS ORDERED: isosorbide mononitrate 30mg tab.SR.24H PO SCH (08:00)
== END 2024-03-22 17:42 | disposition home or self-care (01) | DRG 280 ==
LOC: ER 00:31 → ED HOLD 03:17 → PCU 3S 19:41
PROVIDERS: ADMIT Internal Medicine Critical Care Medicine; ATTEND Internal Medicine
DX: I21.4 Non-ST elevation (NSTEMI) myocardial infarction (principal); N17.0 Acute kidney failure with tubular necrosis; I50.30 Unspecified diastolic (congestive) heart failure; I11.0 Hypertensive heart disease with heart failure; E78.5 Hyperlipidemia, unspecified; I25.10 Atherosclerotic heart disease of native coronary artery without angina pectoris; I48.91 Unspecified atrial fibrillation; Z66 Do not resuscitate; Z79.01 Long term (current) use of anticoagulants; Z79.82 Long term (current) use of aspirin; Z79.899 Other long term (current) drug therapy; Z91.199 Patient's noncompliance with other medical treatment and regimen due to unspecified reason
CPT/HCPCS: 36415; 71045; 78452; 80053; 83735; 83880; 84132; 84484; 85025; 85610; 85730; 87081; 93005; 93017; 93306; 96374; 99291; A9500; G0378; J1644; J2785; J7030